=== PATIENT | male | born 1955 | race Caucasian/White ===

== ENCOUNTER → 2016-11-23 | Outpatient (CLI) | payer OTHER ==
[~2016-11-23] MED LIST: CYMBALTA60 MG PO; HYDRALAZINE50 MG PO; HYDROXYZINE PAM50 MG PO; MORPHINE; MS CONTIN60 MG PO; ONDANSETRON4 MG PO; PRILOSEC10 MG PO; RITALIN LA20 MG PO; SINEMET 25-100M1 TAB PO; SOMA350 MG PO; TORADOL10 MG PO; ULTRAM50 MG PO; VIBRA-TAB100 M1 PO; ZESTRIL,PRINIVI20 MG PO
[2016-11-23 10:34] LABS: HEMATOCRIT 45.3 % (42.0-52.0); HEMOGLOBIN 15.8 g/dl (14.0-18.0); MEAN CELL VOLUME 94.4 fl (80.0-94.0); MEAN CORPUSCULAR HGB 32.9 pg (27.0-31.0); MEAN CORPUSCULAR HGB CONC 34.9 g/dl (33.0-37.0); MEAN PLATELET VOLUME 10.4 fl (9.6-12.3); RED BLOOD COUNT 4.8 10*6/uL (4.50-5.90); RED CELL DISTRI WIDTH 12.8 % (0-14.5); WHITE BLOOD COUNT 9.3 10*3/uL (4.8-10.8)
[2016-11-23 11:12] LABS: ALBUMIN 3.9 gm/dl (3.1-4.5); ALKALINE PHOSPHATASE 71 U/L (45-117); BILIRUBIN, TOTAL 0.7 mg/dl (0.2-1.0); BUN 17 mg/dl (7-24); CARBON DIOXIDE 21 mmol/L (21-32); CHLORIDE 109 mmol/L (98-107); CHOLESTEROL 131 mg/dL (<200); EST GLOM FILT AFRICAN AMERICAN > 60 ml/min; GLUCOSE 91 mg/dL (65-99); HDL CHOLESTEROL 48 mg/dl (40-60); LDL CHOLESTEROL 67 mg/dL (9-159); POTASSIUM 3.9 mmol/L (3.5-5.1); SGOT/AST 33 IU/L (3-35); SGPT/ALT 37 U/L (12-78); SODIUM 142 mmol/L (136-145); TOTAL PROTEIN 8.2 gm/dL (6.4-8.2); TRIGLYCERIDES 78 mg/dl (<150); VLDL CHOLESTEROL 16 mg/dL (6-40)
[2016-11-23 11:14] LABS: VITAMIN D, 25-HYDROXY 16.8 ng/mL (30-100)
== END ==
LOC: LAB 10:07
PROVIDERS: Family Medicine
DX: Z13.220 Encounter for screening for lipoid disorders (principal); Z12.5 Encounter for screening for malignant neoplasm of prostate; E78.00 Pure hypercholesterolemia, unspecified; M54.5 Low back pain; R53.83 Other fatigue; M54.2 Cervicalgia; E55.9 Vitamin D deficiency, unspecified; E53.8 Deficiency of other specified B group vitamins

== ENCOUNTER → 2016-12-04 | Outpatient (CLI) | payer OTHER ==
[2016-12-05 06:11] LABS: HEPATITIS C VIRUS ANTIBODY >11.0 (0.0-0.9)
[2016-12-05 19:09] LABS: HEPATITIS C QNT 119000 IU/mL (.)
== END | disposition home or self-care (01) ==
LOC: LAB 10:36
PROVIDERS: Family Medicine
DX: B19.20 Unspecified viral hepatitis C without hepatic coma (principal)

== ENCOUNTER → 2016-12-23 | Outpatient (CLI) | payer OTHER | END | disposition home or self-care (01) | LOC: US 09:51 | DX: B19.20 Unspecified viral hepatitis C without hepatic coma (principal) ==

== ENCOUNTER → 2017-04-22 | Outpatient (CLI) | payer OTHER ==
[2017-04-22 11:01] LABS: BASO # 0.1 10*3/uL (0.0-0.1); BASO % 0.9 % (0.0-1.0); EOS # 0.2 10*3/uL (0.0-0.4); EOS % 2.7 % (1.0-4.0); HEMATOCRIT 44.8 % (42.0-52.0); HEMOGLOBIN 15.3 g/dl (14.0-18.0); LYMPH # 2.6 10*3/uL (1.3-4.4); LYMPH % 30.2 % (27.0-41.0); MEAN CELL VOLUME 98.9 fl (80.0-94.0); MEAN CORPUSCULAR HGB 33.8 pg (27.0-31.0); MEAN CORPUSCULAR HGB CONC 34.2 g/dl (33.0-37.0); MEAN PLATELET VOLUME 10.4 fl (9.6-12.3); MONO # 0.5 10*3/uL (0.1-1.0); MONO % 5.5 % (3.0-9.0); NEUT # 5.2 10*3/uL (2.3-7.9); NEUT % 60.3 % (47.0-73.0); PLATELET COUNT AUTOMATED 196 10*3/uL (130-400); RED BLOOD COUNT 4.53 10*6/uL (4.50-5.90); RED CELL DISTRI WIDTH 13.8 % (0-14.5); WHITE BLOOD COUNT 8.5 10*3/uL (4.8-10.8)
[2017-04-22 11:10] LABS: URINE AMPHETAMINES < 1000 (1000ng/ml); URINE BARBITURATES < 200 (200ng/ml); URINE BENZODIAZEPINES > 200 (200ng/ml); URINE CANNABINOIDS (THC) > 50 (50ng/ml); URINE COCAINE < 300 (300ng/ml); URINE METHADONE < 300 (300ng/ml); URINE OPIATES < 300 (300ng/ml)
[2017-04-22 11:11] LABS: URINE PHENCYCLIDINE < 25 (25ng/ml)
[2017-04-22 11:23] LABS: ALBUMIN 4.2 gm/dl (3.1-4.5); ALKALINE PHOSPHATASE 85 U/L (45-117); BILIRUBIN, DIRECT 0.4 mg/dL (0.0-0.2); BUN 16 mg/dl (7-24); CHLORIDE 105 mmol/L (98-107); CREATININE 1.08 mg/dL (0.70-1.30); POTASSIUM 3.6 mmol/L (3.5-5.1); SGOT/AST 29 IU/L (3-35); SGPT/ALT 33 U/L (12-78); SODIUM 140 mmol/L (136-145); TOTAL PROTEIN 8.7 gm/dL (6.4-8.2)
[2017-04-23 06:10] LABS: HEPATITIS B SURFACE AB 006395 Non Reactive (.); HEPATITIS B SURFACE AG Negative (Negative)
[2017-04-23 22:07] LABS: HCV LOG10 4.855 (.); HEPATITIS C QNT 71600 IU/mL (.)
== END | disposition home or self-care (01) ==
LOC: LAB 09:42
PROVIDERS: Nurse Practitioner Family
DX: M47.892 Other spondylosis, cervical region (principal); M48.02 Spinal stenosis, cervical region; B19.20 Unspecified viral hepatitis C without hepatic coma

== ENCOUNTER 2019-07-03 14:24 | Inpatient (IN) | payer MEDICARE, MEDICAID ==
[~2019-07-03] VITALS: Ht 167.6 cm; Wt 59.0 kg
--- NOTE | ~2019-07-03 | PR ---
[place], [place] PROGRESS NOTE [facility]ING [facility] [id number] UNIT #: [id number] ROOM: 314 DOCTOR: ULISSES LYLE MD BIRTHDATE: [birth year] DOS: 07/06/2019 SUBJECTIVE: The patient is doing very well, asymptomatic and is being discharged by Dr. Lopez to home today. OBJECTIVE: VITAL SIGNS: Blood pressure 139/70, heart rate of 80 beats per minute, breathing 18 times per minute, temperature 98 degrees Fahrenheit. GENERAL APPEARANCE: The patient is alert and oriented x 3, in no visible distress. HEENT AND NECK: Exam within normal limits. CARDIOVASCULAR SYSTEM: Heart rate is regular in rate and rhythm. S1 and S2 normally audible. LUNGS: Clear to auscultation. ABDOMEN: Soft, nontender. No obvious organomegaly. Bowel sounds are present. EXTREMITIES: Without significant cyanosis or edema. IMPRESSION: 1. The patient with major depression, recurrent, moderate with psychotic features. 2. Nicotine smoke dependence. 3. History of opioid dependence in the past, remains on Suboxone. 4. Benign essential hypertension, being treated with clonidine, blood pressure is staying normal. Blood pressure is 139/70, heart rate 80 beats per minute, breathing 18 times per minute, temperature 98 degrees Fahrenheit. The patient is being discharged by Dr. Lopez to home, present treatment is Invega 156 mg intramuscularly every 30 days then Invega 6 mg every morning, takes vitamin D and multivitamin, clonidine 0.1 mg b.i.d. Follow up at my office within 1 week of discharge. Thank you, Dr. Lopez for consulting me. I will continue to follow the patient. ULISSES LYLE MD CM:PNTRANS [phone] [id number] ULISSES LYLE MD 07/06/1922 interface
--- NOTE | ~2019-07-03 | PR ---
[place], [place] PROGRESS NOTE NAME: JAMES SPRING UNIT #: [id number] ROOM: 314 DOCTOR: ULISSES LYLE MD BIRTHDATE: [birth year] DOS: 07/05/2019 SUBJECTIVE: The patient is doing well, hoping to be discharged to home by Dr. Lopez tomorrow. OBJECTIVE: VITAL SIGNS: Blood pressure 134/68, heart rate 80 beats per minute, breathing 18 times per minute, temperature 98 degrees Fahrenheit. GENERAL APPEARANCE: The patient is alert and oriented x 3, in no visible distress. HEENT AND NECK: Exam within normal limits. CARDIOVASCULAR SYSTEM: Heart rate is regular in rate and rhythm. S1 and S2 normally audible. LUNGS: Clear to auscultation. ABDOMEN: Soft, nontender. No obvious organomegaly. Bowel sounds are present. EXTREMITIES: Without significant cyanosis or edema. IMPRESSION: 1. Major depression, recurrent with psychotic features, schizoaffective disorder, being considered. Dr. Lopez is following. The patient is on Invega, mirtazapine, Zyprexa, lorazepam as needed and being followed closely. 2. Nicotine smoke dependence. The patient was kept on nicotine patch. 3. History of opioid dependence in the past. 4. Benign essential hypertension. Blood pressure is staying normal with clonidine, which will be continued. ULISSES LYLE MD CM:PNTRANS 00 17 ULISSES LYLE MD 07/05/191915 interface
--- NOTE | ~2019-07-03 | CON ---
[place], [place] REPORT OF CONSULTATION NAME: JAMES SPRING [facility] #: [id number] UNIT #: [id number] ROOM: 314 DOCTOR: ULISSES LYLE MD BIRTHDATE: [birth year] DOS: 07/04/2019 ATTENDING PHYSICIAN: Dr. J Carlos Lopez DIAGNOSES: 1. The patient is a 64-year-old gentleman with a past medical history of benign essential hypertension. 2. Opioid dependence. 3. Chronic pain syndrome. 4. Chronic obstructive pulmonary disease. 5. Nicotine smoke dependence. 6. History of hepatitis C by RNA. 7. Major depressive disorder. The patient was brought over by the [employer] to the Emergency Department for hallucinating. The patient believed he had people in his basement and he called the police to have them evicted and police saw nobody in the basement, so the patient is quite angry for being in [facility]. No chest pain, no shortness of breath, no GI or urinary symptoms. REVIEW OF SYSTEMS: RESPIRATORY: No increasing shortness of breath. GASTROINTESTINAL: No nausea, vomiting, diarrhea, constipation. CARDIOVASCULAR: No chest pains or palpitations. RESPIRATORY: No increasing shortness of breath or wheezing. PRESENT MEDICATIONS: Multivitamin, vitamin D, risperidone, nicotine patch, clonidine, Soma, mirtazapine, Zyprexa, lorazepam, Tylenol. ALLERGIES: No known drug allergies. PHYSICAL EXAMINATION: GENERAL: Alert, oriented x 3, in no visible distress at present time. VITAL SIGNS: Blood pressure 133/69, heart rate 94 beats per minute, breathing 17 times per minute, temperature 98 degrees Fahrenheit. LABORATORY DATA: Arma level 0.55. Lipid profile normal. Ammonia level normal. HbA1c normal at 5.2. Normal serum electrolytes, bilirubin, liver enzymes. Hemoglobin 12.8, otherwise normal CBC. IMPRESSION AND PLAN: 1. The patient with major depression, recurrent, severe and psychotic features, started on treatment by Dr. Lopez, being followed closely in [facility]. 2. Benign essential hypertension. The patient continued on clonidine, blood pressure is being monitored and now staying normal. 3. History of opioid dependence, presently not on any opiates. 4. Nicotine smoke dependence. The patient kept on a nicotine patch 21 mg daily. 5. Acute psychosis to be followed and treated by Dr. Lopez. [place], [place] REPORT OF CONSULTATION NAME: JAMES SPRING UNIT #: [id number] ROOM: 314 DOCTOR: ULISSES LYLE MD BIRTHDATE: [birth year] ULISSES LYLE MD CM:CONSTR:REPORT OF CONSULTATION [id number] 07/04/19 1315 interface
--- NOTE | ~2019-07-03 | PR ---
[place], [place] PROGRESS NOTE [id number] UN[facility] #: [id number] ROOM: 314 DOCTOR: YASEMIN GRAVES MD BIRTHDATE: [birth year] DOS: 07/05/2019 CHIEF COMPLAINT: "I didn't sleep too well. The mattresses are hard here. I just want to go home." SUMMARY OF THE VISIT: The patient was interviewed in the dining area where he was eating his breakfast. He had all of his breakfast gone. He reported that he has taken his medicine and that he is in general feeling well enough to go home. He did not sleep well and he relates this much to the fact that the mattress is hard. We talked at length about the pros and cons of taking an Invega Sustenna injection and I discussed the long-term benefits as well as risk of the injection. He nodded in approval and agreed to take the injection. MENTAL STATUS: He is alert and oriented to person, place and time. Mood does seem to be still somewhat labile and irritable. He is short and terse at times, but redirectable. There are no overt auditory or visual hallucinations, although he is somewhat guarded and suspicious. Memory is intact. PLAN: I will load with Invega Sustenna 234 mg IM today. I will plan to discharge then within 24 hours as long as he is tolerating the injection well. He has a followup appointment at [facility] on Wednesday07/11/2019. I will write for Invega Sustenna 156 mg IM monthly, starting on 07/11/2019 and every month thereafter. We will engage in individual and campbell milieu activity, returning to the least restrictive environment when psychiatrically stable. YASEMIN GRAVES MD CM:PNTRANS [id number] YASEMIN GRAVES MD 07/05/19 1453 interface
--- NOTE | ~2019-07-03 | WRIGHTHP ---
[place], [place] PATIENT HISTORY AND PHYSICAL EXAM NAME: JAMES SPRING [facility]CT #: [id number] UNIT #: [id number] ROOM: 314 DOCTOR: YASEMIN GRAVES MD BIRTHDATE: [birth year] DOS: 07/04/2019 CHIEF COMPLAINT: "Some asshole Director [employer]'s deputy pink-slipped me here to the hospital." HISTORY OF PRESENT ILLNESS: This is a 64-year-old white male who was brought into [facility] Emergency Room by Director [employer]'s deputy. The patient had initially contacted the police stating that somebody had broken into his trailer and stating that people were slaughtering cats and other animals in his basement. In reality, this was under his trailer and he stated that if you could look into the grates of the trailer you can see animals being slaughtered. The patient was grossly delusional and bizarre. The patient has a lengthy psychiatric history and has been followed at [facility], but has been noncompliant with his medications stating that he has not taken his medicines at least for the last week because he wants to feel like how it feels like to be without the medicine. Because of his significant delusional system and behavioral disturbance, it was felt that an inpatient stabilization was warranted. The patient is admitted now to rule out further organic factors, to stabilize on medication, to engage in individual and campbell milieu activity, returning then to the least restrictive environment when psychiatrically stable. PAST MEDICAL HISTORY: Remarkable for hypertension, Parkinson's disease, chronic pain syndrome, GERD as well as polysubstance abuse. SOCIAL HISTORY: The patient does admit to cigarette smoking. The patient apparently has been prescribed Adderall and Valium and has tested positive for multiple substances in the past. STRENGTHS: Ambulatory, good verbal skills. WEAKNESSES: Poor coping skills, chronic severe mental health issues, polysubstance abuse. MENTAL STATUS: The patient is alert and oriented to person, place and time. Mood does seem to be labile. Affect is at times inappropriate. He is grossly delusional and very paranoid. He is exhibiting normal memory. DIAGNOSES: Major depression, recurrent with psychotic features, rule out schizoaffective disorder. PLAN: I will go ahead and discontinue his Risperdal in lieu of Invega 6 mg in the morning with the ultimate plan to start him on Invega Sustenna. The patient has a lengthy history of medication noncompliance. He would do well with a long-acting Decanoate form of medication. We will continue to engage in individual and campbell milieu activity, returning then to the least restrictive environment when psychiatrically stable. [place], [place] PATIENT HISTORY AND PHYSICAL EXAM NAME: JAMES SPRING UNIT #: [id number] ROOM: [facility] DOCTOR: YASEMIN GRAVES MD BIRTHDATE: [birth year] YASEMIN GRAVES MD CM:HISPHYS:PATIENT HISTORY AND PHYSICAL EXAMINATION [id number] YASEMIN GRAVES MD 07/04/19 1340 interface
--- NOTE | ~2019-07-03 | DS ---
[place], [place] DISCHARGE SUMMARY [id number] UN[facility] #: [id number] ROOM: 314 DOCTOR: YASEMIN GRAVES MD BIRTHDATE: [birth year] DOS: 07/06/2019 CHIEF COMPLAINT: "Some asshole [employer] deputy pink slipped me here to the hospital." HISTORY OF PRESENT ILLNESS: This is a 64-year-old white male who was brought into [facility] Emergency Room by [employer] deputies. The patient had initially contacted the police stating that somebody had broken into his trailer and stated that people were slaughtering cats and other animals in his basement. He stated that if he looked through the vents in his trailer you could see the animals being butchered. The patient was grossly delusional and bizarre. The patient does have a lengthy psychiatric history and has been followed at mental health, but has been noncompliant with his medications. He is admitted to rule out organic factors, to stabilize on medication and to return to the least restrictive environment. SUMMARY OF HOSPITAL COURSE: The patient was admitted to the unit where his Risperdal was discontinued in lieu of Invega 6 mg in the morning. After discussing the use of long-acting Decanoate preparations to improve compliance, the patient agreed to take a Invega Sustenna shot of 234 mg IM. The patient while on the unit was much more compliant and did not voice bizarre statements. He did not exhibit any mood lability or hostility. After he received the Invega Sustenna injection of 234 mg, he was monitored over the next 24 hours for the presence or absence of extrapyramidal symptoms or tardive dyskinesia, neither of which occurred. The patient had improved sufficiently and was ready to go home to have followup at his mental health provider's office on Wednesday to receive the secondary loading dose of Invega Sustenna 156 mg. Thereafter, he will receive that same dose monthly. MENTAL STATUS AT DISCHARGE: The patient is alert and oriented x 3. Mood is euthymic and he was pleasant, cooperative and polite with me. There was no agitation or aggression. No hypomania or stephanie. He did not voice any paranoia or delusions. Memory for the most part is intact. DIAGNOSES UPON DISCHARGE: Major depression, recurrent with psychotic features. PLAN: All of his prescriptions have been e-scribed to [facility]. At the time of discharge, he was medically and psychiatrically stable. [place], [place] DISCHARGE SUMMARY NAME: JAMES SPRING UNIT #: [id number] ROOM: [facility] DOCTOR: YASEMIN GRAVES MD BIRTHDATE: [birth year] YASEMIN GRAVES MD CM:DISCHARG [phone] YASEMIN GRAVES MD 07/06/19 1041 interface
[~2019-07-03 14:24] MED LIST changes: +'CLONIDINE0.1 MG PO; +AMPHETAMINE/DEX30 MG PO; +DEXTROAMPH SACC20 M1 PO; +DIAZEPAM10 M1 PO; +LITHIUM CARBON300 MG PO; +MULTIVITAMINS1 EAC6 PO; +VITAMIN D31000 UNI1 PO
[2019-07-03 15:30] VITALS: BP 171/90
--- NOTE | 2019-07-03 15:30 | NUR ---
JAMES SPRING a 64 year old M admitted via wheel chair from the EMERGENCY ROOM as a emergency 72 hr. hold admission. Arrived on unit at 1530. ALLERGIES: NKA. Vital signs are: 97.1-80-18 171/90 SPO2 97%RA. The client signed the following forms with stated understanding: Clothing List, Consent and Release Forms/Receipt of Rights, Acknowledgement of Advance Directive Information, Behavioral Health Consent Form . Admitted under the services of Dr. STAR HERNANDEZ,[facility]. A search was conducted and hazardous articles were removed. Client was oriented to the unit. MARY JO PLASENCIA
--- NOTE | 2019-07-03 17:50 | NUR ---
DR. LYLE NOTIFIED OF CONSULT FOR MEDICAL MANAGEMENT.
--- NOTE | 2019-07-03 19:00 | NUR ---
AWAITING WOUND ORDERS AT THIS TIME. DR. LYLE STATES HE WILL BE IN TOMORROW TO ASSESS PT.
[2019-07-03 20:00] VITALS: BP 156/99
--- NOTE | 2019-07-03 20:33 | NUR ---
EVENING/RELAXTION/MUSIC/STORY PT RESTING IN ROOM AT THIS TIME. PT JUST BECOMING ORIENTED TO UNIT AND DECIDED TO ROBUR0Z IN BED THIS EVENING. PT WILL CONTINUE TO BE ENCOURAGED TO ATTEND AND PARTICIPATE IN FUTURE GROUP SESSIONS.
--- NOTE | 2019-07-03 21:00 | NUR ---
P--HOPLESS/HELPLESS. FEAR I--DISCUSED MEDICATIONS ORDERED BY DR GRAVES AND DR LYLE. ALLOWED CLIENT TO VENT ABOUT ANGER OVER HIS DOG. EMOTIONAL SUPPORT PROVIDED. ENCOURAGEMENT GIVEN. OFFERED SHOWER R- I DON'T CARE. I AM SO ANGRY. THAT DEPUTY DIDN'T BELIVE ME AND BROUGHT ME HERE. IF THEY COME BACK AND HURT MY DOG BECAUSE I CALLED THE REGULATORY PROCESS MANAGER, P--CONTINUE EMOTIONAL SUPPORT. MONITOR FOR CHANGES IN BEHAVIOR OR MOOD
--- NOTE | 2019-07-04 06:57 | NUR ---
SAWJAMES [id number] Please refer to the physician's history and physical for past medical history, comorbid conditions, and allergies. Diagnosis: MAJOR DEPRESSION W/PSYCHOTIC FEATURES Blake Score: 18,AT RISK WOUND DESCRIPTIONS: Wound Number: 1 Location of the wound: left underside of forearm Type of wound: traumatic Thickness: Partial Size: 0.7cm x 0.3cm x 0.1cm Tunneling: none Undermining: none Sinus Tract: none Presence of Exudate: Serosanguineous Amount: Light Color: Red Odor: None Periwound Skin Appearance: Normal Wound edges: approximated Pain (associated with wound): none at time of assessment How does patient state this happened? pt stated that he accidently cut himself with a knife while cutting carpet Surface the patient is resting on: Proform SKIN PREVENTION RECOMMENDATION: 1. Pressure redistribution support surface as appropriate 2. Elevate heels 3. Remove boots/TEDS every shift and reapply 4. Head of bed 30 degrees as tolerated 5. Assess nutrition and hydration 6. Manage moisture 7. Avoid the use of containment devices while in bed 8. Use absorptive products on surfaces limit layers of linens on bed 9. Turn and reposition every 1-2 hours in bed and every 1 hour in chair as tolerated 10. Weight shifts every 15 minutes while up in chair 11. Offloading with pillows or device to keep heels elevated off bed 12. Monitor skin at least every shift 13. Inspect under medical devices twice a day WOUND TREATMENT RECOMMENDATIONS: Cleanse underside of left wrist with nss and apply bactroban ointment bid and cover with bandaid.
[2019-07-04 07:53] LABS: THYROID STIM HORMONE (HS) 2.21 uIU/ml (0.358-4.75)
[2019-07-04 07:58] LABS: VITAMIN D, 25-HYDROXY 31.2 ng/mL (30-100)
[2019-07-04 08:10] VITALS: BP 133/69
--- NOTE | 2019-07-04 08:30 | NUR ---
Treatment Plan meeting with Dr. Lopez, RN, AT, SW and Geophysical Laboratory Director. Plan for discharge next week. Pt. will return home at discharge.
--- NOTE | 2019-07-04 09:45 | NUR ---
DR. HONG ON THE UNIT TO ASSESS PT, UPDATE PROVIDED.
--- NOTE | 2019-07-04 11:45 | NUR ---
AM GROUP PT DID NOT ATTEND MORNING GROUP THERAPY. PT WAS IN BED RESTING.
--- NOTE | 2019-07-04 14:02 | NUR ---
Spoke with pt's casey saw operator Janusz Craigbert by phone ([phone]) and then met with Janusz prior to him seeing pt. Also then met with pt and Janusz in pt's room. Janusz has been pt's casey saw operator for approximately 8 years. 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 Pt's band has an album in the [facility]. Janusz stated that pt is a loner and has battled depression for many years. Janusz shared that pt's paranoia is new - starting approximately 1 month ago. Patient also has a history of drug and alcohol abuse.
--- NOTE | 2019-07-04 15:58 | NUR ---
PM GROUP PT CHOSE NOT TO ATTEND AFTERNOON GROUP THERAPY. PT STAYED IN BED.
[2019-07-04 20:00] VITALS: BP 130/68
--- NOTE | 2019-07-04 20:34 | NUR ---
EVENING/BINGO/STORY PT CHOSE NOT TO ATTEND OR PARTICIPATE AT THIS TIME BUT TO REMAIN IN ROOM. PT WILL CONTINUE TO BE ENCOURAGED TO ATTEND AN DPARTICIPATE IN FUTURE GROUP SESSIONS TO BEST OF PT ABILITY.
--- NOTE | 2019-07-04 23:39 | NUR ---
24 HR chart check completed.
[2019-07-05 07:51] VITALS: BP 134/68
--- NOTE | 2019-07-05 08:30 | NUR ---
Treatment Plan meeting with Dr. Lopez, RN, AT, SW and Manager Outpatient. Plan for discharge . Pt. will return home at discharge.
--- NOTE | 2019-07-05 10:53 | NUR ---
DR. LYLE ON UNIT TO ASSESS PT, UPDATE PROVIDED.
--- NOTE | 2019-07-05 11:01 | NUR ---
P: PT ISOALATIVE TO ROOM THROUGHOUT THE DAY, REFUSING TO PARTICIPATE IN GROUPS/ACTIVITIES. PT REFUSES MEALS. PT REFUSED TO COMPLETE ADLS. I: ENCOURAGE GROUP PARTICIPATION AND SOCIALIZATION. ENCOURAGE PO INTAKE. PROVIDE EMOTIONAL SUPOPRT AND 1:l FOR PT TO VOICE FEELINGS, ENCOURAGE PT TO COMPLETE ADLS. R: PT ALERT TO PERSON, PLACE AND TIME. PT MED COMPLIANT WITHOUT DIFFICULTY. PT ATE BREAKFAST IN THE QUIET ROOM WITH MUCH ENCOURAGEMENT. PT CONTINUES TO REFUSE TO PARTICIPATE IN GROUPS/ACTIVITIES. PT AMBULATORY, GAIT OCCASIONALLY UNSTEADY. PT CONTINENT OF BOWEL AND BLADDER. PT CONTINUES TO REFUSE TO COMPLETE ADLS. P: ENCORAGE PO INTAKE, ENCOURAGE GROUP PARTICIPATION AND SOCIALIZATION, PROVIDE EMOTIONAL SUPPORT AND 1:l FOR PT TO VOICE FEELINGS, ENCOURAGE PT TO COMPLETE ADLS.
--- NOTE | 2019-07-05 11:46 | NUR ---
PT RECEIVED INVEGA SUSTENNA TO RIGHT DELTOID, PT TOLERATED WITHOUT ISSUE.
--- NOTE | 2019-07-05 11:55 | NUR ---
AM GROUP/MUSIC AND LIGHT THERAPY PT CHOSES NOT TO ATTEND GROUP THERAPY. PT ISOLATES TO HIS ROOM
--- NOTE | 2019-07-05 15:42 | NUR ---
PM GROUP PT DID NOT ATTEND AFTERNOON GROUP THERAPY. PT ISOLATES TO HIS ROOM
--- NOTE | 2019-07-05 16:29 | NUR ---
Shift chart check completed.
[2019-07-05 19:58] VITALS: BP 121/76
--- NOTE | 2019-07-05 21:30 | NUR ---
Patient alert and oriented x3. Patient isolative to his room. No signs of any responding to internal stimuli. Patient compliant with medications without any difficulty. Attempted to provided 1:1 for emotional support but patient refused. Plan to continue to encourage medication compliance and provide emotional support. Also continue to encourage more interaction with staff and in groups. Q 15 minute safety checks continued and maintained. See [facility] flowsheet for further documentation.
--- NOTE | 2019-07-06 02:56 | NUR ---
24 HR chart check completed.
--- NOTE | 2019-07-06 03:50 | NUR ---
Recommend follow up for wound care in outpatient setting patient refused at this time.
--- NOTE | 2019-07-06 05:06 | NUR ---
Patient slept approx. 8 hours throughout shift. Q 15 minute safety checks continued and maintained.
[2019-07-06 08:00] VITALS: BP 139/70
--- NOTE | 2019-07-06 08:05 | NUR ---
DR. BOND NOTIFIED OF DISCHARGE TODAY.
[2019-07-06] MEDS ORDERED: 'CLONIDINE0.1 MG PO (08:39)
[2019-07-06] MEDS ORDERED: PALIPERIDONE ER6 MG PO (09:48)
[2019-07-06] MEDS ORDERED: INVEGA SUSTENN156 MG IM (09:48)
[2019-07-06] MEDS ORDERED: MIRTAZAPINE15 M2 PO (09:48)
--- NOTE | 2019-07-06 10:00 | NUR ---
Shift chart check completed.
--- NOTE | 2019-07-06 10:16 | NUR ---
P- IRRITABLE/AGITATED. ISOLATIVE TO ROOM. REFUSED BREAKFAST. I- ASSESS MOOD, ORIENTATION, SI/HI, HALLUCINATIONS, DELUSIONS OR PAIN. PROVIDE PRESCRIBED MEDICATIONS ON TIME WITH EDUCATION ON EACH. ENCOURAGE TO ATTEND/PARTICIPATE IN GROUP THERAPY FOR EMOTIONAL SUPPORT AND SOCIALIZATION. 1:1 THERAPEUTIC INTERACTION WITH EMOTIONAL SUPPORT AND VENTILATION OF FEELINGS PROVIDED. OFFER FOOD AND FLUIDS OFTEN. OFFER COPING/RELAXATION TECHNIQUES TO HELP WITH IRRITABILITY/AGITATION. R- ALERT AND ORIENTED X3. PATIENT STATES "I AM GETTING OUT OF HERE TODAY. THERE WAS NO REASON FOR ME TO EVEN BE HERE. THAT [employer] HAD NO RIGHT MAKING ME COME HERE FOR NO REASON". WHEN TRYING TO DO ASSESSMENT PATIENT STATED "IT DOESNT MATTER BECAUSE I AM LEAVING AND I WILL BE HOME". PATIENT REMAINS ISOLATIVE TO HIS ROOM, REFUSING BREAKFAST/OFFERED FOOD AND FLUIDS. MOOD REMAINS IRRITABLE/AGITATED, REFUSING TO UTILIZE COPING/RELAXATION TECHNIQUES. 1:1 THERAPEUTIC INTERACTION SLIGHTLY AFFECTIVE, PATIENT LESS IRRITABLE AND INTERACTING WITH STAFF. 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 MEDICATION COMPLIANT WITH NO DIFFICULTY. GAIT STEADY WHILE AMBULATING. MAKES NEEDS KNOWN. P- ASSESS MOOD, ORIENTATION, SI/HI, HALLUCINATIONS, DELUSIONS OR PAIN EVERY SHIFT. PROVIDE PRESCRIBED MEDICATIONS ON TIME WITH EDUCATION ON EACH. PROVIDE 1:1 THERAPEUTIC INTERACTION WITH EMOTIONAL SUPPORT AND VENTILATION OF FEELINGS. ENCOURAGE TO ATTEND/PARTICIPATE IN GROUP THERAPY. ENCOURAGE AND PROVIDE FOOD AND FLUIDS OFTEN. ENCOURAGE TO UTILIZE COPING/RELAXATION TECHNIQUES. Q15 MINUTE CHECKS MAINTAINED FOR SAFETY.
--- NOTE | 2019-07-06 11:05 | NUR ---
DISCHARGE PHOTOS TAKE OF WOUND TO L [facility]EARM.
--- NOTE | 2019-07-06 11:18 | NUR ---
Discharge instructions reviewed with patient/family. Patient receptive and verbalizes understanding. Follow-up care arranged. Written instructions given to patient. Pt off unit at this time with spring encaser, all belongings returned KIA ROBERTS
--- NOTE | 2019-07-06 13:19 | NUR ---
Patient discharged today to home alone. Follow-up was scheduled for pt at [facility] with Bree OWEN. Patient will also continue with case management through [facility]. Pt isolated while at [facility] but was compliant with medications after a discussion with Dr Lopez. Pt denied the need to participate in programming.
== END 2019-07-06 11:17 | disposition home or self-care (01) | DRG 885 ==
LOC: 3N 14:24
PROVIDERS: ADMIT Psychiatry & Neurology Psychiatry
DX: F33.3 Major depressive disorder, recurrent, severe with psychotic symptoms (principal); F11.20 Opioid dependence, uncomplicated; F25.9 Schizoaffective disorder, unspecified; J44.9 Chronic obstructive pulmonary disease, unspecified; I10 Essential (primary) hypertension; G89.4 Chronic pain syndrome; N40.0 Benign prostatic hyperplasia without lower urinary tract symptoms; K21.9 Gastro-esophageal reflux disease without esophagitis; G20 Parkinson's disease; F17.210 Nicotine dependence, cigarettes, uncomplicated; Z71.6 Tobacco abuse counseling

== ENCOUNTER 2019-11-15 11:04 | Emergency (ER) | payer MEDICARE, MEDICAID ==
[~2019-11-15 11:04] MED LIST changes: +INVEGA SUSTENN156 MG IM; +MIRTAZAPINE15 M2 PO; +PALIPERIDONE ER6 MG PO
[2019-11-15 12:12] LABS: BASO # 0.1 10*3/uL (0.0-0.1); BASO % 0.6 % (0.0-1.0); EOS # 0.3 10*3/uL (0.0-0.4); EOS % 2.8 % (1.0-4.0); HEMATOCRIT 42.6 % (42.0-52.0); HEMOGLOBIN 13.4 g/dl (14.0-18.0); LYMPH % 22.5 % (27.0-41.0); MEAN CELL VOLUME 104.2 fl (80.0-94.0); MEAN CORPUSCULAR HGB 32.8 pg (27.0-31.0); MEAN CORPUSCULAR HGB CONC 31.5 g/dl (33.0-37.0); MONO # 0.6 10*3/uL (0.1-1.0); MONO % 6.4 % (3.0-9.0); NEUT % 67.3 % (47.0-73.0); PLATELET COUNT AUTOMATED 231 10*3/uL (130-400); RED BLOOD COUNT 4.09 10*6/uL (4.50-5.90); RED CELL DISTRI WIDTH 12.8 % (0-14.5); WHITE BLOOD COUNT 8.9 10*3/uL (4.8-10.8)
[2019-11-15 12:28] LABS: ALBUMIN 3.6 gm/dl (3.1-4.5); ALKALINE PHOSPHATASE 121 U/L (45-117); BUN 18 mg/dl (7-24); CHLORIDE 104 mmol/L (98-107); CREATININE 1.29 mg/dL (0.70-1.30); LIPASE 81 U/L (73-393); POTASSIUM 4.5 mmol/L (3.5-5.1); SGOT/AST 19 IU/L (3-35); SGPT/ALT 28 U/L (12-78); SODIUM 138 mmol/L (136-145); TOTAL PROTEIN 7.9 gm/dL (6.4-8.2)
[2019-11-15 12:32] LABS: ACT PARTIAL THROMBO TIME 26.8 SECONDS (20.0-32.1); TROPONIN I < 0.015 ng/ml (<0.045)
[2019-11-15] MEDS ORDERED: PERCOCET 7.5-31 EACH PO (15:17)
== END 2019-11-15 15:26 | disposition home or self-care (01) ==
LOC: ED 11:04
PROVIDERS: Emergency Medicine
DX: M48.55XA Collapsed vertebra, not elsewhere classified, thoracolumbar region, initial encounter for fracture (principal); F32.9 Major depressive disorder, single episode, unspecified; Z79.899 Other long term (current) drug therapy